=== PATIENT | female | born 2000 | race Caucasian/White ===

== ENCOUNTER 2022-03-20 15:56 | Emergency (ER) | payer OTHER ==
[~2022-03-20] VITALS: Ht 149.9 cm; Wt 45.5 kg
[2022-03-20 16:30] LABS: BASO % 0.1 % (0.0-1.0); EOS % 0.1 % (0.0-3.0); HEMATOCRIT 38.3 % (36.0-47.0); HEMOGLOBIN 13.1 g/dl (12.0-15.5); LYMPH # 0.8 10^3/uL (1.5-5.0); LYMPH % 7.4 % (24.0-44.0); MEAN CORPUSCULAR HGB CONC 34.2 g/dl (32.0-36.5); MEAN CORPUSCULAR VOLUME 87.8 fl (80.0-96.0); MONO # 1.2 10^3/uL (0.0-0.8); MONO % 11.5 % (2.0-8.0); NEUTROPHILS # 8.3 10^3/uL (1.5-8.5); NEUTROPHILS % 80.4 % (36.0-66.0); PLATELET COUNT, AUTOMATED 178 10^3/uL (150-450); RED BLOOD COUNT 4.36 10^6/uL (4.00-5.40); WHITE BLOOD COUNT 10.4 10^3/uL (4.0-10.0)
[2022-03-20 16:56] LABS: ALBUMIN 3.6 GM/DL (3.2-5.2); ALT/SGPT 23 U/L (12-78); BILIRUBIN,DIRECT 0.2 MG/DL (0.0-0.2); BILIRUBIN,TOTAL 0.5 MG/DL (0.2-1.0); BLOOD UREA NITROGEN 12 MG/DL (7-18); CALCIUM LEVEL 8.9 MG/DL (8.5-10.1); CARBON DIOXIDE LEVEL 20 MEQ/L (21-32); CHLORIDE LEVEL 109 MEQ/L (98-107); CREATININE FOR GFR 0.68 MG/DL (0.55-1.30); GLUCOSE, FASTING 101 MG/DL (70-100); LIPASE 100 U/L (73-393); SODIUM LEVEL 139 MEQ/L (136-145); TOTAL PROTEIN 7.4 GM/DL (6.4-8.2)
[2022-03-20 17:57] LABS: HCG, SERUM QUALITATIVE NEGATIVE (NEGATIVE)
[2022-03-20] MEDS ORDERED: NS 1,000 ML IV ONE (18:15)
[2022-03-20] MEDS ORDERED: KETOROLAC 30 MG/ML 1ML VIAL IV ONE (18:15)
[2022-03-20] MEDS ORDERED: ONDANSETRON 4MG 2ML VIAL IV ONE (18:15)
[2022-03-20] MEDS ORDERED: ISOVUE-370 76% 100ML VIAL As Ordered ONE (18:20)
[2022-03-20] MEDS ORDERED: AZIT500T5 PO (21:01)
[2022-03-20] MEDS ORDERED: ONDA4TAB6 PO (21:02)
[2022-03-20 21:31] VITALS: BP 130/74
== END 2022-03-20 21:31 | disposition home or self-care (01) ==
LOC: M ED 15:56
DX: A04.5 Campylobacter enteritis (principal); Z88.0 Allergy status to penicillin; Z79.899 Other long term (current) drug therapy
CPT/HCPCS: 74177; 80048; 80076; 83690; 84703; 85025; 87507; 96361; 96374; 99284; J1885; J2405; Q9967

== ENCOUNTER → 2022-03-30 | Outpatient (REF) | payer OTHER ==
[~2022-03-30] MED LIST: AZIT500T5 PO; ONDA4TAB6 PO
== END ==
LOC: M LAB REF 12:22
PROVIDERS: ATTEND Student in an Organized Health Care Education/Training Program
DX: R19.7 Diarrhea, unspecified (principal)